=== PATIENT | male | born 1940 | race Caucasian/White ===

== ENCOUNTER 2022-10-04 14:27 | Emergency (ER) | payer OTHER ==
[~2022-10-04] VITALS: Ht 162.6 cm; Wt 54.9 kg
[2022-10-04 14:39] VITALS: BP 163/86
== END 2022-10-04 15:06 | disposition home or self-care (01) ==
LOC: ER 14:27
DX: S60.211A Contusion of right wrist, initial encounter (principal); W18.30XA Fall on same level, unspecified, initial encounter
CPT/HCPCS: 73110

== ENCOUNTER 2024-10-28 15:16 | Inpatient (IN) | payer OTHER, MEDICARE ==
[~2024-10-28] VITALS: Ht 170.2 cm; Wt 61.5 kg
[2024-10-28] MEDS ORDERED: FentaNYL Citrate 50 MCG/ML 2 ML Injection IV ONE (16:15)
[2024-10-28] MEDS ORDERED: AZELASTINE137 MCG/01 (16:25)
[2024-10-28] MEDS ORDERED: ASPI81CH PO (16:25)
[2024-10-28] MEDS ORDERED: DOCU100 PO (16:27)
[2024-10-28] MEDS ORDERED: BUDESONIDE EC3 M1 PO (16:27)
[2024-10-28] MEDS ORDERED: HYDCHL25 PO (16:27)
[2024-10-28] MEDS ORDERED: METO25 (16:28)
[2024-10-28] MEDS ORDERED: ZESTRIL40 M1 PO (16:28)
[2024-10-28] MEDS ORDERED: PRAV20 PO (16:29)
[2024-10-28] MEDS ORDERED: TIOT18 INH (16:31)
[2024-10-28 17:34] LABS: BASOPHILS ABSOLUTE AUTO 0.02 K/mm3 (0.00-0.23); BASOPHILS PERCENT AUTO 0 % (0-2); EOSINOPHILS ABSOLUTE AUTO 0.02 K/mm3 (0.00-0.68); EOSINOPHILS PERCENT AUTO 0 % (0-6); Hematocrit 38.3 % (37.0-53.0); Hemoglobin 12.9 g/dL (13.5-17.5); IMMATURE GRAN ABSOLUTE AUTO 0.11 K/mm3 (0.00-0.10); IMMATURE GRAN PERCENT AUTO 1 % (0-1); LYMPHOCYTES ABSOLUTE AUTO 0.82 K/mm3 (0.84-5.20); LYMPHOCYTES PERCENT AUTO 5 % (21-46); MONOCYTES ABSOLUTE AUTO 0.73 K/mm3 (0.16-1.47); MONOCYTES PERCENT AUTO 4 % (4-13); Mean Corpuscular HGB Conc 33.7 g/dL (31.5-36.5); Mean Corpuscular Volume 91 fL (80-100); NEUTROPHILS ABSOLUTE AUTO 16.28 K/mm3 (1.96-9.15); NEUTROPHILS PERCENT AUTO 91 % (41-73); NRBC ABSOLUTE 0.00 K/mm3 (0.00-0.02); NRBC Auto 0.0 /100 WBC (0.0-0.2); Platelet Count 213 K/mm3 (150-400); RDW Coefficient Variation 13.2 % (11.7-14.2); RDW Standard Deviation 43.6 fL (35.1-46.3)
[2024-10-28 17:49] LABS: Prothrombin Time Results 11.7 Sec (9.7-11.5)
[2024-10-28 18:02] LABS: Alanine Aminotransfer (ALT/SGP 29.0 U/L (12-78); Albumin, Blood 3.4 g/dL (3.4-5.0); Albumin/Globulin Ratio 1.1 (0.8-1.8); Anion Gap 9.0 mmol/L (3-11); Aspartate Aminotrans (AST/SGOT 23.0 U/L (12-37); Bilirubin, Total 0.7 mg/dL (0.1-1.0); Blood Urea Nitrogen 22.0 mg/dL (8-24); CO2, Blood 26.0 mmol/L (21-32); Calcium, Blood 9.1 mg/dL (8.5-10.1); Chloride, Blood 107.0 mmol/L (98-108); Creatinine, Blood 0.61 mg/dL (0.60-1.20); Ethanol (Alcohol), Blood, Med 4.0 mg/dL; Globulin, Blood 3.2 g/dL (2.2-4.0); Glucose, Blood 133.0 mg/dL (70-99); Potassium, Blood 4.0 mmol/L (3.5-5.5); Sodium, Blood 138.0 mmol/L (136-145); Total Protein, Blood 6.6 g/dL (6.4-8.2)
[2024-10-28] MEDS ORDERED: Ipratropium/Albuterol SulF 2.5-0.5MG/3 ML Amp INH ONE (21:25)
[2024-10-28] MEDS ORDERED: FentaNYL Citrate 50 MCG/ML 2 ML Injection IV PRN (23:05)
[2024-10-28] MEDS ORDERED: Ipratropium/Albuterol SulF 2.5-0.5MG/3 ML Amp INH SCH (23:05)
[2024-10-28] MEDS ORDERED: Naloxone HCl 0.4MG / ML 1ML Vial IV PRN (23:10)
[2024-10-28] MEDS ORDERED: Ondansetron HCl 2 MG / ML 2ML Vial IV PRN (23:10)
[2024-10-28 23:14] LABS: Anti-Xa UFH, PHA Monitoring <0.10 IU/mL
[2024-10-28] MEDS ORDERED: Ketorolac Tromethamine 15mg Vial IV PRN (23:55)
[2024-10-29] VITALS (38 sets, daily range): BP systolic 85–190; BP diastolic 54–125
[2024-10-29 04:09] LABS: BASOPHILS ABSOLUTE AUTO 0.03 K/mm3 (0.00-0.23); BASOPHILS PERCENT AUTO 0 % (0-2); EOSINOPHILS ABSOLUTE AUTO 0.00 K/mm3 (0.00-0.68); EOSINOPHILS PERCENT AUTO 0 % (0-6); Hematocrit 33.0 % (37.0-53.0); Hemoglobin 10.9 g/dL (13.5-17.5); IMMATURE GRAN ABSOLUTE AUTO 0.07 K/mm3 (0.00-0.10); IMMATURE GRAN PERCENT AUTO 1 % (0-1); LYMPHOCYTES ABSOLUTE AUTO 0.40 K/mm3 (0.84-5.20); LYMPHOCYTES PERCENT AUTO 3 % (21-46); MONOCYTES ABSOLUTE AUTO 0.27 K/mm3 (0.16-1.47); MONOCYTES PERCENT AUTO 2 % (4-13); Mean Corpuscular HGB Conc 33.0 g/dL (31.5-36.5); Mean Corpuscular Volume 93 fL (80-100); NEUTROPHILS ABSOLUTE AUTO 13.69 K/mm3 (1.96-9.15); NEUTROPHILS PERCENT AUTO 95 % (41-73); NRBC ABSOLUTE 0.00 K/mm3 (0.00-0.02); NRBC Auto 0.0 /100 WBC (0.0-0.2); Platelet Count 164 K/mm3 (150-400); RDW Coefficient Variation 13.3 % (11.7-14.2); RDW Standard Deviation 45.5 fL (35.1-46.3)
[2024-10-29] MEDS ORDERED: CefTRIAXone Sodium 1,000 MG in NS 100 ML IV SCH (04:29)
[2024-10-29 04:34] LABS: Alanine Aminotransfer (ALT/SGP 22.0 U/L (12-78); Albumin, Blood 2.9 g/dL (3.4-5.0); Albumin/Globulin Ratio 1.0 (0.8-1.8); Anion Gap 9.0 mmol/L (3-11); Aspartate Aminotrans (AST/SGOT 20.0 U/L (12-37); Bilirubin, Total 0.6 mg/dL (0.1-1.0); Blood Urea Nitrogen 28.0 mg/dL (8-24); CO2, Blood 27.0 mmol/L (21-32); Calcium, Blood 8.2 mg/dL (8.5-10.1); Chloride, Blood 106.0 mmol/L (98-108); Creatinine, Blood 0.74 mg/dL (0.60-1.20); Globulin, Blood 2.8 g/dL (2.2-4.0); Glucose, Blood 171.0 mg/dL (70-99); Magnesium, Blood 1.5 mg/dL (1.6-2.4); Potassium, Blood 4.7 mmol/L (3.5-5.5); Sodium, Blood 137.0 mmol/L (136-145); Total Protein, Blood 5.7 g/dL (6.4-8.2)
[2024-10-29] MEDS ORDERED: Magnesium Sulf 2 GM/Water 50ML 50 ML IV ONE (05:20)
--- NOTE | 2024-10-29 07:53 | NUR ---
SHIFT SUMMARY: PT ARRIVED ON UNIT AT 0015. PT A&OX4 CALM AND COOPERATIVE. VSS ON 1L NC. BEDREST. PT C/O 10/02 PAIN IN RIGHT HIP. MEDICATED PER EMAR. SKIN TEARS NOTED FROM FALL AND BRUISING SCATTERED T/O FROM FALL. LR @125 ML/HR. RECEIVING IV ABX. MG 1.5 AND CRITICAL LAB VALUE OF TROP OF 644. RESIDENT NOTIFIED AND ORDERED MG REPLACEMENT. TOLERATING HEART HEALTHY DIET. BED IS LOW AND LOCKED AND CALL LIGHT WITHIN REACH. CONTINUE WITH CURRENT PLAN OF CARE.
[2024-10-29] MEDS ORDERED: Lactobacil 2-S.Thermo-Bifido 1 1 Cap PO SCH (09:00)
[2024-10-29] MEDS ORDERED: Bupivacaine 0.5% W/EPI 1:200000 SDV 30 ML Vial ONE (14:15)
--- NOTE | 2024-10-29 14:25 | NUR ---
PT LEFT FOR SURGERY WITH CHART AT APPROX 1420. VSS.
[2024-10-29] MEDS ORDERED: FentaNYL Citrate 50 MCG/ML 2 ML Injection ONE ×2 (14:39→15:49)
[2024-10-29] MEDS ORDERED: Phenylephrine HCl 100 MCG/ML-NS 10MLSYR (1MG/10ML) ONE (14:40)
[2024-10-29] MEDS ORDERED: Rocuronium Bromide 10 MG/ML 5ML Injection IV ONE (14:40)
[2024-10-29] MEDS ORDERED: Dexamethasone Sod Phos 10 MG/ML 1ML VIAL ONE (14:40)
[2024-10-29] MEDS ORDERED: Ondansetron HCl 2 MG / ML 2ML Vial ONE (15:05)
[2024-10-29] MEDS ORDERED: Sugammadex Sodium 200 MG/2ML SDV (100 MG/ML) ONE (15:05)
[2024-10-29] MEDS ORDERED: CeFAZolin Sodium 2,000 MG VIAL ONE (15:11)
[2024-10-29] MEDS ORDERED: Ondansetron HCl 2 MG / ML 2ML Vial IV PRN (15:55)
[2024-10-29] MEDS ORDERED: FentaNYL Citrate 50 MCG/ML 2 ML Injection IV PRN (15:55)
[2024-10-29] MEDS ORDERED: Labetalol HCL 5 MG/ML 4ML Injection (Single Dose) IV PRN (15:55)
[2024-10-29] MEDS ORDERED: HYDROmorphone HCl/Pf 1MG SYR IV PRN (15:55)
[2024-10-29] MEDS ORDERED: HYDROmorphone HCl/Pf 1MG SYR ONE (16:03)
--- NOTE | 2024-10-29 17:01 | NUR ---
UPDATE/SHIFT SUMMARY: PT ARRIVED POST RIGHT HIP PINNING AROUND 1650. INCISION SITE C/D/I WITH AQUACEL DRESSING. PT DIFFICULT TO AROUSE DUE TO MEDICATION. PT ON 2L NASAL CANNULA, SATS >92. PT A/O X4 THROUGHOUT SHIFT, AND ABLE TO MAKE NEEDS KNOWN. STRENGTH WEAK, EQUAL BILATERALLY. PT ON ROOM AIR SPO2 >98%, PRIOR TO SURGERTY- RESPIRATIONS EVEN AND UNLABORED, LUNG SOUNDS CLEAR THROUGHOUT. BP AND HR STABLE, AFEBRILE. PULSES STRONG AND EQUAL THROUGHOUT. ABD SOFT, NON TENDER, BOWEL SOUNDS +. PT BR MAJORITY OF THIS SHIFT DUE TO R. HIP FX. REPOS Q2 TO MAINTAIN SKIN INTEGRITY. PT ABLE TO USE URINAL WITH ASSIST. NO BM. PT WITH SCATTERED BRUISING THROUGHOUT- SEE CHART FOR PICTURES. BED IN LOW, CALL LIGHT IN REACH, WILL REPORT TO ONCOMING RN.
[2024-10-29] MEDS ORDERED: Metoprolol Tartrate 5 ML IV ONE (22:26)
[2024-10-29] MEDS ORDERED: Metoprolol Tartrate 1 MG/ML 5 ML VIAL IV ONE ×3 (22:35→23:25)
--- NOTE | 2024-10-29 23:10 | NUR ---
PT RAPID RESPONSE CALLED @ 2220 D/T SUSTAINED AFIB RVR IN 160S-220S AND HYPERTENSIVE WITH PT C/O 8 OUT OF 10 CHEST AND LEFT NECK PAIN. ATTEMPTED VAGAL WITH NO RESPONSE TO HR. BEDSIDE EKG X2 COMPLETED. SEE CHART. PROVIDERED ORDERED 5 MG METOPROLOL IV PUSH AND GIVEN AT 2225. HR 140S-150S AND BP 157/117 AT 2030. AT 2237 HR 120S-130S AND BP 121/90. PROVIDER ORDERED 5MG IV METOPROLOL FOR SUSTAINED HR >140 AND GIVEN AT 2300 FOR AFIB 140S-150S. NO CHANGE IN HR AFTER ADMINISTRATION. PROVIDER NOTIFIED AND ORDERED ANOTHER 5MG IV METOPROLOL, 25 MG PO METOPROLOL TARTRATE, MAG, AND BMP. MEDICATED PER ORDER. HR AFIB 130S-140S AND BP 116/88. PT UP IN BED WATCHING TV AND DENIES CHEST PAIN/PRESSSURE AND SOB.
[2024-10-30] VITALS (13 sets, daily range): BP systolic 90–164; BP diastolic 59–99
[2024-10-30 00:07] LABS: Anion Gap 10.0 mmol/L (3-11); Blood Urea Nitrogen 27.0 mg/dL (8-24); CO2, Blood 24.0 mmol/L (21-32); Calcium, Blood 7.8 mg/dL (8.5-10.1); Chloride, Blood 106.0 mmol/L (98-108); Creatinine, Blood 0.73 mg/dL (0.60-1.20); Glucose, Blood 157.0 mg/dL (70-99); Magnesium, Blood 1.8 mg/dL (1.6-2.4); Potassium, Blood 4.4 mmol/L (3.5-5.5); Sodium, Blood 136.0 mmol/L (136-145)
[2024-10-30] MEDS ORDERED: Amiodarone HCl 450 MG in NS 250 ML IV SCH (01:15)
[2024-10-30] MEDS ORDERED: Amiodarone HCl 150 MG in NS 100 ML IV ONE (01:15)
--- NOTE | 2024-10-30 04:38 | NUR ---
PROVIDER COMMUNICATION: RESIDENT NOTIFIED D/T HR AFIB 130S-150S AFTER GIVEN 5MG IV METOPROLOL AND 25 PO METOPROLO TARTRATE. RESIDENT ORDERED AMIO BOLUS AND DRIP. MEDICATED PER ORDER. PT CONVERTED NSR 90S AT 0200. CURRENT HR NSR 60S-70S AND BP 93/61. PT UP IN BED WATCHING TV. DENIES CHEST PAIN/PRESSURE AT THIS TIME.
[2024-10-30 04:41] LABS: Hematocrit 26.0 % (37.0-53.0); Hemoglobin 8.7 g/dL (13.5-17.5); Mean Corpuscular HGB Conc 33.5 g/dL (31.5-36.5); Mean Corpuscular Volume 91 fL (80-100); NRBC ABSOLUTE 0.00 K/mm3 (0.00-0.02); NRBC Auto 0.0 /100 WBC (0.0-0.2); Platelet Count 147 K/mm3 (150-400); RDW Coefficient Variation 13.7 % (11.7-14.2); RDW Standard Deviation 45.3 fL (35.1-46.3)
[2024-10-30 05:01] LABS: Anion Gap 9.0 mmol/L (3-11); Blood Urea Nitrogen 26.0 mg/dL (8-24); CO2, Blood 24.0 mmol/L (21-32); Calcium, Blood 7.6 mg/dL (8.5-10.1); Chloride, Blood 106.0 mmol/L (98-108); Creatinine, Blood 0.67 mg/dL (0.60-1.20); Glucose, Blood 117.0 mg/dL (70-99); Potassium, Blood 4.4 mmol/L (3.5-5.5); Sodium, Blood 135.0 mmol/L (136-145)
[2024-10-30] MEDS ORDERED: NS 1,000 ML IV SCH (09:00)
--- NOTE | 2024-10-30 09:05 | NUR ---
back charting for night RN SHIFT SUMMARY: PT A&OX4 CALM AND COOPERATIVE. VSS ON 1L NC. BEDREST. RAPID RESPONSE CALLED AT 2220 D/T AFIB RVR 160S-220S AND PT C/O CHEST AND LEFT NECK PAIN 10/02. SEE PREVIOUS NOTES. AMIO BOLUS AND DRIP GIVEN PER DR. LIM. CONVERTED NSR 90S AT 0200. PT BEGAN HAVING SOFT BPS WITH MAP BELOW 65 AND RESIDENT NOTIFIED. RESIDENT ORDERED TO STOP AMIO DRIP. AMIO DRIP STOPPED AT 0500. CONTINUES TO HAVE SOFT BPS BUT MAP >65. RECEIVING IV ABX. RESIDENT NOTIFIED OF WBC INCREASE AND ORDERED LACTIC LAB. TOLERATING HEART HEALTHY DIET. BED IS LOW AND LOCKED AND CALL LIGHT WITHIN REACH. CONTINUE WITH CURRENT PLAN OF CARE.
--- NOTE | 2024-10-30 10:21 | NUR ---
BRAXTON PETER IS NOW IN PTS ROOM STARTING AT 1020. PT SITTING UP IN CHAIR, AND KEEPS TRYING TO GET UP. PT IS EASY TO DIRECT, BUT FORGETFUL. CHAIR ALARM ON. PHYSICAL THERAPY IS ON WAY TO WORK WITH PATIENT.
--- NOTE | 2024-10-30 17:02 | NUR ---
SHIFT SUMMARY: PT A/O X2, PT FORGETFUL AT TIMES, ABLE TO TELL HIS NAME, , FORGETFUL TO LOCATION AND EVENTS PRIOR TO HOSPITILIAZTION. STRENGTH EQUAL BILATERALLY. SITTER AT BEDSIDE FOR IMPULSIVNESS. PT ON 2L O2 NC, SATS >95%. PT DENIES SOB. PT LUNG SOUNDS CLEAR THROUGHOUT. RESPIRTATIONS EVEN AND UNLABORED. PT REMAINED NSR 80s THIS SHIFT, NO TELE EVENTS. BP STABLE. NO CHEST PAIN/PRESSURE. AREA SALES MANAGER AT BEDSIDE THIS AM, MEDICATIONS ADJUSTED, SEE EMAR. PT ABLE TO VOID USING URINAL WITH ASSIST, NO BM TODAY. PT POST OP DAY 2 FOR RIGHT HIP FX. DRESSING REMAINS C/D/I. DENIES PAIN. PATIENT ABLE TO WORK WITH PT/OT TODAY, TOLERATED WELL. FRIEND AT BEDSIDE THIS AFTERNOON, UPDATED ON PTS CARE. PT SITTING UP IN CHAIR, CALL WITHIN REACH. CHAIR ALARM ON.
[2024-10-31] VITALS (13 sets, daily range): BP systolic 92–155; BP diastolic 62–86
[2024-10-31] MEDS ORDERED: Metoprolol Tartrate 1 MG/ML 5 ML VIAL IV SCH (00:35)
[2024-10-31] MEDS ORDERED: Mag Sulfate 1 GM/D5% 100ML 100 ML IV STA (01:40)
[2024-10-31 04:05] LABS: Hematocrit 24.3 % (37.0-53.0); Hemoglobin 8.1 g/dL (13.5-17.5); Mean Corpuscular HGB Conc 33.3 g/dL (31.5-36.5); Mean Corpuscular Volume 91 fL (80-100); NRBC ABSOLUTE 0.00 K/mm3 (0.00-0.02); NRBC Auto 0.0 /100 WBC (0.0-0.2); Platelet Count 127 K/mm3 (150-400); RDW Coefficient Variation 13.8 % (11.7-14.2); RDW Standard Deviation 45.3 fL (35.1-46.3)
[2024-10-31 04:27] LABS: Anion Gap 7.0 mmol/L (3-11); Blood Urea Nitrogen 22.0 mg/dL (8-24); CO2, Blood 26.0 mmol/L (21-32); Calcium, Blood 7.8 mg/dL (8.5-10.1); Chloride, Blood 108.0 mmol/L (98-108); Creatinine, Blood 0.64 mg/dL (0.60-1.20); Glucose, Blood 105.0 mg/dL (70-99); Potassium, Blood 3.7 mmol/L (3.5-5.5); Sodium, Blood 137.0 mmol/L (136-145)
[2024-10-31 09:20] LABS: Ferritin, Serum 104.0 ng/mL (26-388); Total Iron Binding Capacity 282.0 ug/dL (250-450)
[2024-10-31] MEDS ORDERED: Polyethylene Glycol 3350 17 gm PO PRN (13:25)
[2024-10-31] MEDS ORDERED: Iron Dextran 50 MG / ML 2ML Vial IV ONE (14:30)
[2024-10-31] MEDS ORDERED: Iron Dextran 975 MG in NS 250 ML IV ONE (16:00)
--- NOTE | 2024-10-31 18:19 | NUR ---
SHIFT SUMMARY: A/O X4 AT THE BEGINING OF SHIFT, A/OX2-3 TOWARDS MIDDLE OF THE DAY, INCREASED CONFUSION DAY WENT ON, THEN RETURNED TO A/O X4, BED ALARM SET. LOWEST SBP 112, MAINLY SBP 130'S, R PEDAL PULSE FOUND WITH DOPPLER AND MARKED ON SKIN. 1/2 PACK A DAY SMOKER, PT STATES THAT NICOTINE PATCH IS WORKING WELL, ON 0.5L-RA TO SAT >90%, SPUTUM SAMPLE NOT COLLECTED, RARELY COUGHED THIS SHIFT. CONTINENT TO URINE, ENDORSES URGENCY, USES URINAL AT BEDSIDE, LOW URINE OUTPUT THIS SHIFT, PT VOIDED 175MLS AROUND 1730, BLADDER SCANNED AFTER VOID AND HAD 100MLS RETAINED, DENIES FEELING PRESSURE OR PAIN IN AREA OF BLADDER. BOWEL CARE STARTED PER EMAR, NO BM THIS SHIFT, STOOL SAMPLE NEEDED, HOLD ELIQUIS UNTIL STOOL SAMPLE IS COLLECTED. 1 PERSON ASSIST W/FWW AND GAIT BELT. MD WORKMAN DISCUSSED DC TO A SNF FOR REHAB.
[2024-10-31] MEDS ORDERED: Vitamin B Cmplx/Vit C/Folic Ac 1 Tab PO SCH (21:00)
--- NOTE | 2024-10-31 22:21 | NUR ---
REPORT GIVEN TO J CARLOS TATUM. PT TRANSPORTED BY BED TO ROOM 212. ALL BELONGINGS AND PAPERWORK WITH PT AT TIME OF TRANSFER.
--- NOTE | 2024-10-31 22:42 | NUR ---
TRANSFER FROM PCU PT ARRIVED TO ROOM 212 AROUND 2200. PT AAOX4, ABLE TO STATE HIS NAME, , AND LOCATION. PER REPORT PT DOES SUNDOWN AND CAN BECOME CONFUSED BUT EASILY REORIENTED. BED ALARM ON FOR SAFETY. AQUACEL DRESSING TO R HIP C/D/I ASIDE FROM A SMALL AREA OF SHADOWING TO DISTAL AREA OF DRESSING. PT REPORTS 8/10 HIP PAIN, MEDICATED PER APR. PT STOOD AT BEDSIDE WITH ASSIST TO USE URINAL, VOIDED 100 ML. PT ORIENTED TO ROOM AND CALL LIGHT.
[2024-11-01] VITALS (11 sets, daily range): BP systolic 118–175; BP diastolic 83–123
[2024-11-01 04:26] LABS: Hematocrit 24.3 % (37.0-53.0); Hemoglobin 7.9 g/dL (13.5-17.5); Mean Corpuscular HGB Conc 32.5 g/dL (31.5-36.5); Mean Corpuscular Volume 94 fL (80-100); NRBC ABSOLUTE 0.00 K/mm3 (0.00-0.02); NRBC Auto 0.0 /100 WBC (0.0-0.2); Platelet Count 135 K/mm3 (150-400); RDW Coefficient Variation 13.7 % (11.7-14.2); RDW Standard Deviation 46.7 fL (35.1-46.3)
[2024-11-01 04:50] LABS: Anion Gap 7.0 mmol/L (3-11); Blood Urea Nitrogen 22.0 mg/dL (8-24); CO2, Blood 27.0 mmol/L (21-32); Calcium, Blood 8.3 mg/dL (8.5-10.1); Chloride, Blood 108.0 mmol/L (98-108); Creatinine, Blood 0.67 mg/dL (0.60-1.20); Glucose, Blood 106.0 mg/dL (70-99); Potassium, Blood 3.9 mmol/L (3.5-5.5); Sodium, Blood 138.0 mmol/L (136-145)
[2024-11-01] MEDS ORDERED: Metoprolol Tartrate 1 MG/ML 5 ML VIAL IV ONE ×2 (04:55→05:40)
--- NOTE | 2024-11-01 04:55 | NUR ---
VITALS: PT BP ELEVATED THIS AM, HR SINUS 150'S PER TELE MONITOR. PT DENIED CP/PRESSURE. DR BENÍTEZ NOTIFIED OF VS, NEW ORDER FOR 1X DOSE IV LOPRESSOR REC. PRIMARY RN UPDATED.
--- NOTE | 2024-11-01 05:37 | NUR ---
IV METOPROLOL GIVEN, VITALS RECHECKED 30 MINUTES LATER AND BP STILL ELEVATED 170'S SYSTOLIC. HR WENT DOWN TO 130S FOR AROUND 15 MINUTES AND NOW BACK UP TO 150'S PER DESIZING MACHINE OFFBEARER. NOTIFIED DR BENÍTEZ AGAIN AND RECEIVED ORDER FOR AN ADDITIONAL DOSE OF IV METOPROLOL 5MG AND TO ALSO GIVE PT'S 0900 DOSE OF DIGOXIN AND METOPROLOL XL NOW.
--- NOTE | 2024-11-01 06:37 | NUR ---
2ND DOSE OF IV METOPROLOL GIVEN. HR STILL 130-140S PER MACHINE SANDER AND TECH ACTUALLY CONFIRMED THAT PT CONVERTED TO AFIB RVR WHEN HIS HR INITIALLY INCREASED. BP SLIGHTLY IMPROVED 140-90S. CALL MADE TO DR BENÍTEZ, AWAITING CALL BACK.
--- NOTE | 2024-11-01 06:46 | NUR ---
RECIEVED CALL BACK FROM DR BENÍTEZ. UPDATED HIM ON UNCHANGED HR AND SLIGHT IMPROVEMENT IN BP. PT ALSO NOW REPORTING SOME L SHOULDER/ARM PAIN. CHARGE NURSE GETTING EKG AT THIS POINT. DR BENÍTEZ UPDATED ON THIS TOO. DR BENÍTEZ TO PUT IN ORDER FOR TROPONIN AND SOME OTHER LABS AND TO MONITOR BP FOR NEXT HALF HOUR OR SO BEFORE GIVING ADDITIONAL MEDS BECAUSE HE DOESN'T WANT TO DROP BP TOO QUICKLY. EKG SHOWED AFLUTTER.
--- NOTE | 2024-11-01 07:37 | NUR ---
called dr paula regarding pt's vs BP 147/109. HR 135 PER TELE. PT HAVING 8/[address] PAULA INSTRUCTED TO GIVEN 25 MCG FENTANYL NOW. REPEAT DOSE IF NO RELIEF.
--- NOTE | 2024-11-01 09:09 | NUR ---
DR WORKMAN IN TO SEE PT.
[2024-11-01] MEDS ORDERED: FentaNYL Citrate 50 MCG/ML 2 ML Injection IV ONE (10:00)
[2024-11-01] MEDS ORDERED: FentaNYL Citrate 50 MCG/ML 2 ML Injection IV PRN (10:00)
[2024-11-01] MEDS ORDERED: Pantoprazole Sodium 40 MG Injection IV SCH ×2 (10:00→16:30)
--- NOTE | 2024-11-01 10:30 | NUR ---
A FLUTTER W/RVR DETENTION OFFICER CALLED AND REPORTED PT CONVERTED TO AFLUTTER W RVR IN 140S-150S. OBTAINED BP OF 155/101. PT DENIES CP OR PRESSURE. NOTIFIED DR WORKMAN. ORDERS PENDING.
[2024-11-01] MEDS ORDERED: Metoprolol Tartrate 1 MG/ML 5 ML VIAL IV STA (10:31)
[2024-11-01] MEDS ORDERED: Metoprolol Tartrate 1 MG/ML 5 ML VIAL IV PRN (11:00)
[2024-11-01] MEDS ORDERED: Diltiazem HCl 5 MG / ML 5ML Vial IV ONE (12:00)
--- NOTE | 2024-11-01 12:50 | NUR ---
CALLED DR WORKMAN REGARDING HR - AFIB/FLUTTER 140'S. DECISION TO MOVE TO PCU. DR BAPTISTE NOTIFIED - DR TO REVIEW CHART AND PLACE ORDERS.
--- NOTE | 2024-11-01 14:21 | NUR ---
REPORT GIVEN TO ANTELMO Gorman RN. TURNING OVER CARE TO JHONATAN Zaldivar RN UNTIL ROOM READY FOR PT TO TRANSFER TO PCU.
--- NOTE | 2024-11-01 15:30 | NUR ---
ASSUMPTION OF CARE THIS RN ASSUMED CARE OF PATIENT FROM [facility] FLOOR RN. PATIENT IS ALERT, ABLE TO FOLLOW COMMANDS AND MAKE NEEDS KNOWN. VSS, SPO2 >90% ON RA, PATIENT DENIES PRESENCE OF CHEST PAIN AND PRESSURE AT THIS TIME. PATIENT IS NOT DISPLAYING ANY SIGNS OF DISTRESS. PATIENT IN BED, BED IN LOWEST POSITION, CALL LIGHT WITHIN REACH.
[2024-11-01 17:27] LABS: Source, Urine Clean Catch
[2024-11-01 17:36] LABS: Bilirubin, Urine Neg (Neg); Glucose Qualitative, Urine Neg (Neg); Ketones, Urine Neg (Neg); Leukocyte Esterase, Urine 1+ (Neg); Protein, Urine Neg (Neg); Specific Gravity, Urine 1.005 (1.003-1.022); Urobilinogen, Urine NORM (Normal)
[2024-11-01 17:43] LABS: Color, Urine Pale Yellow (P-Yellow)
[2024-11-01 17:44] LABS: White Blood Cells, Urine 0-2 /hpf (0-5)
--- NOTE | 2024-11-01 18:33 | NUR ---
SHIFT SUMMARY PATIENT IS ALERT, ABLE TO FOLLOW COMMANDS AND MAKE NEEDS KNOWN. VSS, SPO2 >90% ON RA, PATIENT DENIES PRESENCE OF CHEST PAIN, PRESSURE OR SHORTNESS OF BREATH. NO ACUTE CHANGES SINCE ASSUMPTION OF CARE. PATIENT UP IN CHAIR, CHAIR ALARM ARMED, CALL LIGHT WITHIN REACH.
[2024-11-02] VITALS (8 sets, daily range): BP systolic 107–175; BP diastolic 65–125
[2024-11-02 04:46] LABS: Hematocrit 26.9 % (37.0-53.0); Hemoglobin 9.1 g/dL (13.5-17.5); Mean Corpuscular HGB Conc 33.8 g/dL (31.5-36.5); Mean Corpuscular Volume 91 fL (80-100); NRBC ABSOLUTE 0.15 K/mm3 (0.00-0.02); NRBC Auto 1.1 /100 WBC (0.0-0.2); Platelet Count 199 K/mm3 (150-400); RDW Coefficient Variation 13.9 % (11.7-14.2); RDW Standard Deviation 45.0 fL (35.1-46.3)
[2024-11-02] MEDS ORDERED: Diltiazem HCl 5 MG / ML 5ML Vial IV ONE (05:40)
--- NOTE | 2024-11-02 07:44 | NUR ---
SHIFT SUMMARY: PT A&OX1-2 CONFUSED BUT COOPERATIVE AT START OF SHIFT. THROUGHOUT OUT THE NIGHT THE PATIENT BECAME MORE CONFUSED AND AGITATED. HE WAS NOT FOLLOWING COMMANDS AND DIFFICULT TO REDIRECT.PROVIDER NOTIFIED OF CHANGE IN MENTATION. REPEAT HEAD CT COMPLETED AND NEGATIVE. PT HAD ONE EPISODE OF AFIB RVR 140S-160S. PROVIDER NOTIFIED AND ORDERED ONE TIME DOSE OF 10MG DILTIAZEM IV PUSH. PT SELF CONVERTED TO SR 80S BEFORE ADMINISTERING. BLADDER SCAN AND STRAIGHT CATH X2. RECEIVING IV ABX. BED IS LOW AND LOCKED AND CALL LIGHT WITHIN REACH. BED ALARM ON. CONTINUE WITH CURRENT PLAN OF CARE. REPORT GIVEN TO DAY NURSE.
[2024-11-02 08:54] LABS: Anion Gap 12.0 mmol/L (3-11); Blood Urea Nitrogen 18.0 mg/dL (8-24); CO2, Blood 26.0 mmol/L (21-32); Calcium, Blood 8.9 mg/dL (8.5-10.1); Chloride, Blood 105.0 mmol/L (98-108); Creatinine, Blood 0.72 mg/dL (0.60-1.20); Glucose, Blood 128.0 mg/dL (70-99); Potassium, Blood 3.5 mmol/L (3.5-5.5); Sodium, Blood 139.0 mmol/L (136-145)
[2024-11-02] MEDS ORDERED: Polyethylene Glycol 3350 17 gm PO ONE (10:00)
--- NOTE | 2024-11-02 17:58 | NUR ---
SHIFT SUMMARY ASSUMED CARE AT 0700 AND RECIEVED BEDSIDE SHIFT REPORT FROM NIGHT NURSE. PATIENT HAD AN ACTIVE NIGHT AND WAS PLACED A 1:1 SITTER. UPON AWAKENING PATIENT WAS ALERT AND ORIENTED X4. PATIENT'S HR WAS AFIB AND TACHY. MEDICATED PER EMAR. PATIENT CONVERTED TO SINUS RHYTHM. PATIENT REMAINED COOPERATIVE THROUGH OUT SHIFT. PROVIDER WANTS STABLE HR FOR 24 BEFORE COLONOSCOPY CAN BE SCHEDULED. PATIENT IS COMFORTABLY RESTING IN BED, IN LOWEST POSITION. CALL LIGHT WITHIN REACH. PATIENT ATTEMPTED TO URINATE MULTIPLE TIMES. STRAIGHT CATHETER X2. DR. KELLY GAVE VERBAL ORDER FOR FOLLEY CATHETER. CATHETER IN PLACE, DRAINING URINE TO GRAVITY.
[2024-11-03 03:25] VITALS: BP 141/68
[2024-11-03 03:58] LABS: Hematocrit 26.2 % (37.0-53.0); Hemoglobin 8.6 g/dL (13.5-17.5); Mean Corpuscular HGB Conc 32.8 g/dL (31.5-36.5); Mean Corpuscular Volume 95 fL (80-100); NRBC ABSOLUTE 0.12 K/mm3 (0.00-0.02); NRBC Auto 1.1 /100 WBC (0.0-0.2); Platelet Count 202 K/mm3 (150-400); RDW Coefficient Variation 14.2 % (11.7-14.2); RDW Standard Deviation 47.7 fL (35.1-46.3)
[2024-11-03 04:47] LABS: Anion Gap 7.0 mmol/L (3-11); Blood Urea Nitrogen 14.0 mg/dL (8-24); CO2, Blood 29.0 mmol/L (21-32); Calcium, Blood 8.0 mg/dL (8.5-10.1); Chloride, Blood 105.0 mmol/L (98-108); Creatinine, Blood 0.78 mg/dL (0.60-1.20); Glucose, Blood 94.0 mg/dL (70-99); Potassium, Blood 3.7 mmol/L (3.5-5.5); Sodium, Blood 137.0 mmol/L (136-145)
--- NOTE | 2024-11-03 06:33 | NUR ---
SHIFT SUMMARY: PT A&OX3 DISORIENTED TO TIME. PT WAS CALM AND COOPERATIVE THROUGHOUT SHIFT WITH IMPROVED MENTATION. RAO CATHETER IN PLACE AND DRAINING TO GRAVITY. TOLERATING PO INTAKE. NO BM DURING SHIFT. PLAN IS TO START BOWEL PREP 11/03 AND UNDERGO SCOPE. SEE NURSE NOTIFY FOR DIET ORDERS AND PLAN. BED IS LOW AND LOCKED AND CALL LIGHT WITHIN REACH. BED ALARM ON. CONTINUE WITH CURRENT PLAN OF CARE.
[2024-11-03 07:51] VITALS: BP 139/73
--- NOTE | 2024-11-03 09:21 | NUR ---
DR. GODOY TO ROOM FOR PT EVAL AND TO UPDATE POC. PT MED/TELE STATUS AT THIS TIME.
[2024-11-03 15:40] VITALS: BP 146/74
--- NOTE | 2024-11-03 15:54 | NUR ---
History, Chart, Medications and Allergies reviewed before start of procedure. Lungs clear T/O to Auscultation. Patient confirms NPO status and agrees with scheduled surgery. Patient confirms NPO status and agrees with scheduled surgery. Pre-Op teaching done. Pt verbalizes understanding.
--- NOTE | 2024-11-03 16:03 | NUR ---
PT DOWN FOR PROCEDURE AT ROUGHLY 1530
[2024-11-03] MEDS ORDERED: Benzocaine Oral Spray 0.5ML UD ONE ×2 (17:43→17:45)
--- NOTE | 2024-11-03 17:54 | NUR ---
11/03/24 1754 Marbella Stern ENDO 1 @ 1746- CONFIRMED AND REVIEWED H&P, MEDCICATIONS, ALLERGIES, MEDICAL HISTORY, RESPIRATORY HISTORY, VITAL SIGNS, 3-LEAD EKG, CONSENTS, AND PHYSICIAN ORDERS. PATIENT CONFIRMS NPO STATUS AND AGREES WITH SCHEDULED PROCEDURE. MONITOR INTACT WITH CONTINUOUS PULSE OXIMETRY, CAPNOGRAPHY, 3-LEAD EKG, INTERMITTENT BP. SUPPLEMENTAL O2 TO BE TITRATED THROUGHOUT PROCEDURE TO MAINTAIN O2 SATURATION ABOVE 90%. PATIENT DETERMINED TO BE ASA APPROPRIATE FOR MAC PRIOR TO START OF PROCEDURE BY . PROVIDING MAC-SEE ANESTHESIA RECORD.
--- NOTE | 2024-11-03 18:26 | NUR ---
SHIST SUMMARY PT A/OX3, CONFUSED AT TIMES. PT ABLE TO EXPRESS NEEDS AND CALLED APPROPIATE. PT WOULD HAVE PERIODS OF FORGETING CONVERSATIONS WITH STAFF. PT WAS EASILY REORIENTED. PT VSS THROUGHOUT SHIFT WITH O2 SATS IN CHRISTIANO 90'S ON RA. NO REPORT OF CHEST PAIN/PRESSURE THROUGHOUT SHIFT. NO REPORT OF SOB/DYSPNEA THROUGHOUT SHIFT. PT DOWN FOR EGD TODAY, SEE SURGERICAL NOTES. PT WORKED WITH PHYSICAL THERAPY TODAY, SEE THERAPIST NOTES. RAO REMAINED IN PLACE, PATENT. PT ABLE TO MOVE RIGHT ARM AND LEG, REQUIRED LEFT ARM TO HELP LIFT AND MOVE HIS RIGHT ARM.
[2024-11-03 19:06] VITALS: BP 115/76
[2024-11-03] MEDS ORDERED: Etomidate 2MG / ML 10ML Vial ONE (19:07)
[2024-11-03 19:59] VITALS: BP 146/78
[2024-11-03 22:10] VITALS: BP 131/64
--- NOTE | 2024-11-03 22:10 | NUR ---
SHIFT SUMMARY: PT ARRIVED BACK FROM OR AROUND 1914. PT A&OX3 DISORIENTED TO DATE. CALM AND COOPERATIVE AND CALLS APPROPRIATELY. VSS ON RA. PT DENIES PAIN. RAO IN PLACE DRAINING TO GRAVITY. TOLERATING HEART HEALTHY DIET. SWALLOWS MEDS WHOLE. NO OTHER SIGNIFICANT EVENTS TO REPORT. REPORT GIVEN TO ROOM 303 NURSE. PT TRANSFERRED TO MEDICAL FLOOR AROUND 2154.
[2024-11-04 00:12] VITALS: BP 128/70
[2024-11-04 04:20] VITALS: BP 147/79
[2024-11-04 04:46] LABS: Hematocrit 26.1 % (37.0-53.0); Hemoglobin 8.5 g/dL (13.5-17.5); Mean Corpuscular HGB Conc 32.6 g/dL (31.5-36.5); Mean Corpuscular Volume 97 fL (80-100); NRBC ABSOLUTE 0.06 K/mm3 (0.00-0.02); NRBC Auto 0.6 /100 WBC (0.0-0.2); Platelet Count 197 K/mm3 (150-400); RDW Coefficient Variation 15.3 % (11.7-14.2); RDW Standard Deviation 47.6 fL (35.1-46.3)
[2024-11-04 05:05] LABS: Albumin, Blood 2.5 g/dL (3.4-5.0); Anion Gap 7 mmol/L (3-11); Blood Urea Nitrogen 18 mg/dL (8-24); CO2, Blood 28 mmol/L (21-32); Calcium, Blood 8.3 mg/dL (8.5-10.1); Chloride, Blood 109 mmol/L (98-108); Creatinine, Blood 0.69 mg/dL (0.60-1.20); Glucose, Blood 86 mg/dL (70-99); Magnesium, Blood 1.8 mg/dL (1.6-2.4); Phosphorus, Blood 3.2 mg/dL (2.5-4.9); Potassium, Blood 3.9 mmol/L (3.5-5.5); Sodium, Blood 140 mmol/L (136-145)
--- NOTE | 2024-11-04 06:28 | NUR ---
END OF SHIFT RESUMED CARE OF PT AT 0400. PT DENIED PAIN OF LEG. ALERT AND ORIENTED TIMES 4. DRESSING TO R HIP MARKED W OZZIE W DRIED BLOOD. PT CAN MOVE TOES AND FEELS LEG. IV ABX STARTED W AM OMEPRAZOLE GIVEN. PT RAO EMPTIED, PT WAITING FOR BREAKFAST AND WANTS TO GO HOME. SCDS PLACED ON PT AND O2 MONITOR CONNECTED.
[2024-11-04 07:31] VITALS: BP 139/79
[2024-11-04 11:41] VITALS: BP 141/68
[2024-11-04 15:02] VITALS: BP 146/66
--- NOTE | 2024-11-04 16:53 | NUR ---
SHIFT SUMMARY: PATIENT IS A&OX3-4, HE IS PLEASANT AND COOPERATIVE WITH CARE,MAKES HIS NEEDS KNOWN. HE IS A 1 PERSON ASSIST WITH THE FWW AND GAITBELT. NO EVENTS ON TELE EVEN WITH EXERTION. RAO STILL IN PLACE FOR ACUTE RETENTION; PT STATES THAT HE DID NOT HAVE A RAO PRIOR TO ADMISSION. HE DENIES PAIN, AND OVERALL FEELING/DOING WELL. HE UNDERSTANDS THE NEED TO CONTINUE WORKING ON MOBILITY AND STRENGTH AND PL[facility] PRIOR TO GOING HOME DUE TO LIVING ALONE. PATIENT ALERT, SITTING IN BEDSIDE CHAIR, CALL LIGHT WITHIN REACH, NO SIGNS OR SYMPTOMS OF DISTRESS, PLAN OF CARE ONGOING.
[2024-11-04 20:05] VITALS: BP 131/85
--- NOTE | 2024-11-04 23:34 | NUR ---
THIS GENERAL CLAIMS AGENT CONTACTED THE ON-CALL HOSPITALIST DR. BENÍTEZ REGARDING PT C/O RESTLESS LEGS. ALSO REQUESTING MELATONIN. PER CONVERSTATION, DR. BENÍTEZ WILL PUT IN ORDERS.
[2024-11-05 00:14] VITALS: BP 138/73
--- NOTE | 2024-11-05 04:10 | NUR ---
SHIFT SUMMARY AT HS PT C/O RESTLESS LEGS. ONE TIME ORDER FOR GABAPENTIN RECEIVED (SEE PREVIOUS NOTE) FROM THE ON-CALL HOSPITALIST. RAO DRAINING YELLOW COLOR URINE. TELE: SR @60, PT DENIES CP/PRESSURE. RIGHT HIP DRESSING C/D/I. PT IS PLEASANT, A/O X4, ABLE TO MAKE HIS NEEDS KNOWN. BED AT THE LOWEST POSITION, CALL LIGHT W/I REACH. NO ACUTE EVENTS DURING THIS SHIFT.
[2024-11-05 04:30] VITALS: BP 131/62
[2024-11-05 04:50] LABS: Hematocrit 25.8 % (37.0-53.0); Hemoglobin 8.3 g/dL (13.5-17.5); Mean Corpuscular HGB Conc 32.2 g/dL (31.5-36.5); Mean Corpuscular Volume 98 fL (80-100); NRBC ABSOLUTE 0.03 K/mm3 (0.00-0.02); NRBC Auto 0.3 /100 WBC (0.0-0.2); Platelet Count 201 K/mm3 (150-400); RDW Coefficient Variation 16.4 % (11.7-14.2); RDW Standard Deviation 48.3 fL (35.1-46.3)
[2024-11-05 05:17] LABS: Albumin, Blood 2.5 g/dL (3.4-5.0); Anion Gap 7 mmol/L (3-11); Blood Urea Nitrogen 22 mg/dL (8-24); CO2, Blood 28 mmol/L (21-32); Calcium, Blood 8.2 mg/dL (8.5-10.1); Chloride, Blood 106 mmol/L (98-108); Creatinine, Blood 0.89 mg/dL (0.60-1.20); Glucose, Blood 96 mg/dL (70-99); Magnesium, Blood 1.6 mg/dL (1.6-2.4); Phosphorus, Blood 3.4 mg/dL (2.5-4.9); Potassium, Blood 3.9 mmol/L (3.5-5.5); Sodium, Blood 137 mmol/L (136-145)
[2024-11-05 07:29] VITALS: BP 143/73
[2024-11-05] MEDS ORDERED: Ipratropium/Albuterol SulF 2.5-0.5MG/3 ML Amp INH PRN (11:25)
[2024-11-05 11:27] VITALS: BP 137/68
[2024-11-05 15:13] VITALS: BP 131/70
--- NOTE | 2024-11-05 15:46 | NUR ---
SHIFT SUMMARY PATIENT HAS BEEN A&OX4, PLEASANT AND COOPERATIVE. PATIENT STATES THAT THEY ARE FEELING MUCH BETTER, WAS EXCITED TO WORK WITH PHYSICAL THERAPY TODAY. PATIENT WAS ABLE TO WALK IN THE HALLS WITH PHYSICAL THERAPY. CALL LIGHT WITHIN REACH IS ABLE TO MAKE NEEDS KNOWN, CALL LIGHT IS WITHIN REACH.
--- NOTE | 2024-11-05 16:38 | NUR ---
ASSUMED CARE OF PATIENT
--- NOTE | 2024-11-05 17:20 | NUR ---
DARK URINE WITH BLOODY SEDIMENT NOTED FROM RAO. CALL MADE TO DR. GODOY. PLAN DISCUSSED WAS TO REMOVE RAO. ALSO DISCUSSED HOLDING EVENING DOSE OF METOPROLOL DUE TO LOW HEART RATE. ORDERS CHANGED PER DR. GODOY. DOSE HELD AND CHANGED TO QD STARTING TOMORROW. PATIENT AGREEABLE TO RAO REMOVAL. RAO REMOVED, SCANT AMOUNT OF BLOOD CAME FROM URETHRA, CLEANED AREA, NO ACTIVE BLEEDING. PATIENT DENIES DISCOMFORT. ATTEMPTED TO VOID POST RAO REMOVED AND WAS ABLE TO VOID A SMALL AMOUNT OF URINE INTO THE URINE. DENIES DISCOMFORT. PER DR. GODOY CONTINUE TO WATCH FOR SIGNS OR BLEEDING. NO SIGNS OR SYMPTOMS OF DISTRESS WITH PATIENT.
[2024-11-05 20:18] VITALS: BP 144/75
[2024-11-06 01:01] VITALS: BP 136/71
[2024-11-06 03:53] VITALS: BP 162/74
--- NOTE | 2024-11-06 04:16 | NUR ---
SHIFT SUMMARY NO ACUTE EVENTS DURING THIS SHIFT. PT VOIDING WELL, AFTER RAO WAS REMOVED DURING THE PREVIOUS SHIFT. PT HAD A BM DURING THIS SHIFT. 1-PERSON ASSIST TO THE RESTROOM. NEW ORDER FOR TUMS PO RECEIVED FROM THE ON-CALL HOSPITALIST, PT REPORTS EFFECTIVE. BED AT THE LOWEST POSITION, CALL LIGHT W/I REACH. PT IS A/O X4, ABLE TO MAKE HIS NEEDS KNOWN AND COOPERATIVE WITH CARE. RIGHT HIP DRESSING INTACT.
[2024-11-06 07:33] VITALS: BP 158/85
[2024-11-06 11:07] VITALS: BP 138/75
[2024-11-06 16:22] VITALS: BP 168/71
--- NOTE | 2024-11-06 20:03 | NUR ---
SHIFT SUMMARY- PT ALERT AND ORIENTED, HE BECAME A BIT CONFUSED TODAY WITH THE ACTUAL TOD. HE THOUGHT IT WAS DINNER TIME AT BREAKFAST, HE FORGOT HE NEEDED ASSISTANCE WITH TRANSFERS. PT HAD A BED BATH TODAY. PT IS PLANNING TO [facility]. HE IS LOOKING FORWARD TO THE DISCHARGE PLAN. BEDSIDE REPORT COMPLETED WITH NIGHT RN, PT IN BED, CALL LIGHT IN REACH, BED ALARM SET FOR SAFETY, NO S&S OF DISTRESS NOTED AT THIS TIME.
[2024-11-06 20:17] VITALS: BP 152/74
[2024-11-07 00:39] VITALS: BP 157/77
--- NOTE | 2024-11-07 04:02 | NUR ---
SHIFT SUMMARY NO ACUTE EVENTS DURING THIS SHIFT. PT DENIES PAIN AND DISCOMFORT. RIGHT HIP DRESSING INTACT. VSS. PT IS VOIDING WELL. BED AT THE LOWEST POSITION, CALL LIGHT W/I REACH. PT IS A/O X3-4, PLEASANT AND COOPERATIVE WITH CARE. TELE: SR @63, PT DENIES CP/PRESSURE, SOB, N/V.
[2024-11-07 05:34] VITALS: BP 166/67
--- NOTE | 2024-11-07 05:57 | NUR ---
ONE TIME ORDER OF HYDRAZALINE 10MG IV ORDER RECEIVED FROM THE ON-CALL HOSPITALIST DR. MCKEON. ENTERED TO [employer], SEE EMAR.
[2024-11-07] MEDS ORDERED: HydrALAZINE HCl 20 MG / ML 1ML Vial IV ONE (06:00)
[2024-11-07 07:23] VITALS: BP 142/66
[2024-11-07 11:25] VITALS: BP 122/63
[2024-11-07 12:35] LABS: CORONAVIRUS COVID-19 AG Negative (NEGATIVE)
[2024-11-07] MEDS ORDERED: METO50ER PO (12:49)
[2024-11-07] MEDS ORDERED: ELIQUIS5 M2 PO (12:50)
[2024-11-07] MEDS ORDERED: Amiodarone HCl200 MG PO (12:50)
[2024-11-07] MEDS ORDERED: Acetaminophen650 M1 PO (12:50)
[2024-11-07] MEDS ORDERED: Calcium Carbon500 MG PO (12:54)
[2024-11-07] MEDS ORDERED: MELATONIN5 M1 PO (12:55)
[2024-11-07] MEDS ORDERED: GUAI600T33 PO (12:55)
[2024-11-07] MEDS ORDERED: GABA100 PO (12:55)
[2024-11-07] MEDS ORDERED: NICO21TP TOP (12:56)
[2024-11-07] MEDS ORDERED: MIRALAX17 GM PO (12:57)
[2024-11-07] MEDS ORDERED: OMEP20ER PO (13:17)
--- NOTE | 2024-11-07 14:05 | NUR ---
PT DISCHARGED TO [facility]. [facility].
== END 2024-11-07 14:13 | DRG 853 ==
LOC: ER 15:16 → MEDS 22:59 → PCU 22:59 → SURS 10-31 21:45 → PCU 11-01 15:29 → MEDS 11-03 22:10
PROVIDERS: Emergency Medicine; Internal Medicine; Internal Medicine Gastroenterology; Student in an Organized Health Care Education/Training Program; ADMIT Student in an Organized Health Care Education/Training Program
PROC: 0QS634Z Reposition Right Upper Femur with Internal Fixation Device, Percutaneous Approach (ICD-10-PCS; principal; 2024-10-28)
PROC: 0HQ0XZZ Repair Scalp Skin, External Approach (ICD-10-PCS; 2024-10-28)
PROC: 3E03329 Introduction of Other Anti-infective into Peripheral Vein, Percutaneous Approach (ICD-10-PCS; 2024-10-28)
PROC: 0DBK8ZZ Excision of Ascending Colon, Via Natural or Artificial Opening Endoscopic (ICD-10-PCS; 2024-10-28)
PROC: 0DBN8ZZ Excision of Sigmoid Colon, Via Natural or Artificial Opening Endoscopic (ICD-10-PCS; 2024-10-28)
PROC: 0DBM8ZZ Excision of Descending Colon, Via Natural or Artificial Opening Endoscopic (ICD-10-PCS; 2024-10-28)
PROC: 0DBL8ZZ Excision of Transverse Colon, Via Natural or Artificial Opening Endoscopic (ICD-10-PCS; 2024-10-28)
PROC: 3E0234Z Introduction of Serum, Toxoid and Vaccine into Muscle, Percutaneous Approach (ICD-10-PCS; 2024-10-28)
PROC: 0DJ08ZZ Inspection of Upper Intestinal Tract, Via Natural or Artificial Opening Endoscopic (ICD-10-PCS; 2024-11-03 17:00)
DX: A41.9 Sepsis, unspecified organism (principal); I21.A1 Myocardial infarction type 2; S72.001A Fracture of unspecified part of neck of right femur, initial encounter for closed fracture; J18.9 Pneumonia, unspecified organism; J96.01 Acute respiratory failure with hypoxia; J44.1 Chronic obstructive pulmonary disease with (acute) exacerbation; J44.0 Chronic obstructive pulmonary disease with (acute) lower respiratory infection; D62 Acute posthemorrhagic anemia; I48.92 Unspecified atrial flutter; D69.6 Thrombocytopenia, unspecified; Z66 Do not resuscitate; Z23 Encounter for immunization; R65.20 Severe sepsis without septic shock; I25.10 Atherosclerotic heart disease of native coronary artery without angina pectoris; I35.8 Other nonrheumatic aortic valve disorders; I10 Essential (primary) hypertension; Z85.46 Personal history of malignant neoplasm of prostate; S01.81XA Laceration without foreign body of other part of head, initial encounter; I95.9 Hypotension, unspecified; D50.9 Iron deficiency anemia, unspecified; I48.0 Paroxysmal atrial fibrillation; K64.4 Residual hemorrhoidal skin tags; Z79.82 Long term (current) use of aspirin; Z79.899 Other long term (current) drug therapy; Z95.1 Presence of aortocoronary bypass graft; W18.30XA Fall on same level, unspecified, initial encounter
CPT/HCPCS: 12052; 36415; 36416; 51701; 70450; 70486; 71045; 72125; 72192; 73030; 73070; 73502; 80048; 80053; 80069; 80320; 81001; 82728; 83540; 83550; 83605; 83690; 83735; 84145; 84484; 85025; 85027; 85520; 85610; 85730; 86850; 86900; 86901; 87426-QW; 88305; 90471; 90715; 93005; 93010; 93306; 94640; 94664; 94760; 94762; 96374-59; 96375-59; 97110; 97116; 97162; 97165; 97530; 97535; 99285-25; A9270; C1713; C1769; J0282; J0360; J0456; J0690; J0696; J1100; J1171; J1750; J2371; J2405; J2470; J2704; J2919; J3010; J3475; J7050; J7120; J7512

== ENCOUNTER 2024-12-11 19:05 | Emergency (ER) | payer OTHER ==
[~2024-12-11] VITALS: Ht 170.2 cm; Wt 63.0 kg
[~2024-12-11 19:05] MED LIST: ASPI81CH PO; AZELASTINE137 MCG/01; Acetaminophen650 M1 PO; Amiodarone HCl200 MG PO; BUDESONIDE EC3 M1 PO; Calcium Carbon500 MG PO; DOCU100 PO; ELIQUIS5 M2 PO; GABA100 PO; GUAI600T33 PO; HYDCHL25 PO; MELATONIN5 M1 PO; METO25; METO50ER PO; MIRALAX17 GM PO; NICO21TP TOP; OMEP20ER PO; PRAV20 PO; TIOT18 INH; ZESTRIL40 M1 PO
[2024-12-11 22:04] VITALS: BP 131/60
== END 2024-12-11 22:13 | disposition home or self-care (01) ==
LOC: ER 19:05
DX: S51.011A Laceration without foreign body of right elbow, initial encounter (principal); S00.83XA Contusion of other part of head, initial encounter; J44.9 Chronic obstructive pulmonary disease, unspecified; W19.XXXA Unspecified fall, initial encounter; Z79.51 Long term (current) use of inhaled steroids; Z79.899 Other long term (current) drug therapy
CPT/HCPCS: 70450; 73080; 99284-25; A9270

== ENCOUNTER 2024-12-12 07:31 | Emergency (ER) | payer OTHER ==
[~2024-12-12] VITALS: Ht 170.2 cm; Wt 63.0 kg
[2024-12-12 07:38] VITALS: BP 162/70
== END 2024-12-12 09:31 | disposition home or self-care (01) ==
LOC: ER 07:31
DX: S51.811A Laceration without foreign body of right forearm, initial encounter (principal); W18.30XA Fall on same level, unspecified, initial encounter; J44.9 Chronic obstructive pulmonary disease, unspecified; I25.10 Atherosclerotic heart disease of native coronary artery without angina pectoris; I10 Essential (primary) hypertension; I48.91 Unspecified atrial fibrillation; K21.9 Gastro-esophageal reflux disease without esophagitis; E78.5 Hyperlipidemia, unspecified; Z79.01 Long term (current) use of anticoagulants; Z79.899 Other long term (current) drug therapy
CPT/HCPCS: 12001; 90471; 99282-25